=== PATIENT | male | born 1985 | race American Indian/Alaskan Native ===

== ENCOUNTER 2017-01-29 14:22 | Emergency (ER) | payer MEDICAID, OTHER ==
[2017-01-29] MEDS ORDERED: KEPPRA 500 MG in D5W 100 ML IV ONE (16:30)
[2017-01-29 16:34] LABS: Basophils % (Auto) 0.4 % (0.0-1.8); Hematocrit 38.3 % (35.5-45.6); Hemoglobin 12.6 gm/dl (11.8-15.2); Mean Corpuscular HGB Conc 33 % (32-34); Mean Corpuscular Hemoglobin 30 pg (28-32); Mean Corpuscular Volume 91 fl (84-94); Platelet Count 177 K/mm3 (140-440); Red Blood Count 4.19 M/mm3 (3.65-5.03); Red Cell Distribution Width 13.5 % (13.2-15.2); White Blood Count 5.6 K/mm3 (4.5-11.0)
--- NOTE | 2017-01-29 16:49 | Cat Scan Report ---
CT HEAD WITHOUT CONTRAST INDICATION: Seizure. COMPARISON: 07/22/2016 CT and 02/18/2015 MRI. FINDINGS: Noncontrast head CT again demonstrates known extensive left cerebral hemispheric AVM changes, including left frontal gyral calcifications with largest confluent measurement of 5.7 x 1.8 cm on axial series 2, image 32. Underlying predominantly left frontal lobe atrophy/irregularity again seen with more extensive involvement appreciated on prior MRI along the entire left cerebral hemisphere, more so the convexity and also the left parieto-occipital region with prominent/enlarged dural venous sinuses and multiple collaterals/draining vessels. No definite acute infarct, hemorrhage, mass effect or midline shift. Normal posterior fossa with preserved basilar cisterns. Normal eye globes. Stable mild depressed left lamina papyracea fracture. Clear imaged paranasal sinuses and mastoid air cells except for right mastoid tip opacification again noted, axial image 5. Stable frontal scalp AVM/draining channels extending to the nose also again seen. Intact calvarium. Few small radiopaque dental fillings. CONCLUSION: 1. 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 Please correlate. 2. Few other incidental findings, as above. Thank you for the opportunity to participate in this patient's care.
--- NOTE | 2017-01-29 16:50 | Emergency Department Report ---
ED Seizure HPI - General Chief Complaint: Seizure Stated Complaint: SEIZURE Time Seen by Provider: 01/29/17 15:45 Source: patient, EMS Mode of arrival: Stretcher Limitations: No Limitations - History of Present Illness MD Complaint: seizure -: Gradual Description of Episode: tonic-clonic movement Duration of Episode: 15 -: second(s) Witnessed:: Yes Trauma: No Seizure History: known seizure disorder Place: home Possible Precipitating Event: lack of sleep Associated Symptoms: denies: chest pain, confusion, cough, diaphoresis, fever/ chills, loss of appetite, malaise, rash, syncope, weakness - Related Data Home Medications Medication Instructions Recorded Confirmed Last Taken amLODIPine [Norvasc] 10 mg PO BID 07/17/16 01/29/17 01/29/17 levETIRAcetam [Keppra TAB] 2,000 mg PO BID 07/17/16 01/29/17 01/29/17 carBAMazepine [Carbamazepine ER] 400 mg PO Q12H 01/29/17 01/29/17 01/29/17 Allergies Allergy/AdvReac Type Severity Reaction Status Date / Time Tetanus Vaccines & Toxoid Allergy Seizure Verified 08/19/16 09:59 ED Review of Systems ROS: Stated complaint: SEIZURE Other details as noted in HPI Comment: All other systems reviewed and negative ED Past Medical Hx - Past Medical History Previous Medical History?: Yes Hx Hypertension: Yes Hx Seizures: Yes Additional medical history: AVM - Surgical History Past Surgical History?: Yes - Social History Smoking Status: Never Smoker Substance Use Type: None - Medications Home Medications: Home Medications Medication Instructions Recorded Confirmed Last Taken Type amLODIPine [Norvasc] 10 mg PO BID 07/17/16 01/29/17 01/29/17 History levETIRAcetam [Keppra TAB] 2,000 mg PO BID 07/17/16 01/29/17 01/29/17 History carBAMazepine [Carbamazepine ER] 400 mg PO Q12H 01/29/17 01/29/17 01/29/17 History ED Physical Exam - General Limitations: No Limitations General appearance: alert, in no apparent distress - Head Head exam: Present: atraumatic, normocephalic - Eye Eye exam: Present: normal appearance, PERRL - ENT ENT exam: Present: mucous membranes moist - Neck Neck exam: Present: normal inspection - Respiratory Respiratory exam: Present: normal lung sounds bilaterally. Absent: respiratory distress - Cardiovascular Cardiovascular Exam: Present: regular rate, normal rhythm. Absent: systolic murmur, diastolic murmur, rubs, gallop - GI/Abdominal GI/Abdominal exam: Present: soft, normal bowel sounds - Rectal Rectal exam: Present: deferred - Extremities Exam Extremities exam: Present: normal inspection - Back Exam Back exam: Present: normal inspection - Neurological Exam Neurological exam: Present: alert, oriented X3 - Psychiatric Psychiatric exam: Present: normal affect, normal mood - Skin Skin exam: Present: warm, dry, intact, normal color. Absent: rash ED Course Vital Signs 01/29/17 15:43 Temperature 98.3 F Pulse Rate 75 Respiratory 18 Rate Blood Pressure 155/87 [Left] O2 Sat by Pulse 99 Oximetry ED Medical Decision Making - Lab Data Result diagrams: 01/29/17 16:12 - Radiology Data Radiology results: report reviewed, image reviewed - Medical Decision Making patient doing well here in the ER, head ct negative, labs negative , will dc with proper follow up with neurology, [id number] seizure, he saids he has been complaint with them Critical care attestation.: If time is entered above; I have spent that time in minutes in the direct care of this critically ill patient, excluding procedure time. ED Disposition Clinical Impression: Seizure, AVM (arteriovenous malformation) brain Disposition: DISCHARGED TO HOME OR SELFCARE Is pt being admited?: No Does the pt Need Aspirin: No Condition: Good Referrals: PRIMARY CARE, [Primary Care Provider] - 3-5 Days Forms: Work/School Release Form(ED) Time of Disposition: 16:52
[2017-01-29 16:58] LABS: Alanine Aminotransferase 16 units/L (7-56); Albumin/Globulin Ratio 1.3 %; Alkaline Phosphatase 78 units/L (35-129); Anion Gap 15 mmol/L; BUN/Creatinine Ratio 10.58; Bilirubin,Total < 0.20 mg/dL (0.1-1.2); Blood Urea Nitrogen 18 mg/dL (9-20); Calcium 8.8 mg/dL (8.4-10.2); Carbon Dioxide 28 mmol/L (22-30); Chloride 101.1 mmol/L (98-107); Glucose 130 mg/dL (75-100); Potassium 3.9 mmol/L (3.6-5.0); Sodium 140 mmol/L (137-145)
[2017-01-29 17:56] VITALS: BP 130/87
== END 2017-01-29 18:00 | disposition home or self-care (01) ==
LOC: ED 14:22
DX: Q28.2 Arteriovenous malformation of cerebral vessels (principal); G40.909 Epilepsy, unspecified, not intractable, without status epilepticus; I10 Essential (primary) hypertension
CPT/HCPCS: 36415; 70450; 80053; 85025; 96374; 99284; J1953